=== PATIENT | female | born 1960 | race Caucasian/White ===

== ENCOUNTER 2020-02-24 09:00 | Day surgery (SDC) | payer BC ==
[2020-02-18 12:45] VITALS: BMI 22.8
--- OUTSIDE RECORDS SUMMARY | 2020-02-24 09:04 | XMS ---
:1960 [facility] Care Team Providers Name Role Phone AMY HENRRY Lenny Unavailable Unavailable Greenhut, H DO Unavailable Greenhut, H DO Unavailable Greenhut, H DO Unavailable Greenhut, H DO Unavailable Greenhut, H DO Unavailable Greenhut, H DO Unavailable Greenhut, H DO Unavailable NURSE Unavailable Unavailable KAUS Unavailable Unavailable Gilhooly, INFORMATION SYSTEMS OPERATOR Unavailable Unavailable Gilhooly, INFORMATION SYSTEMS OPERATOR Unavailable Unavailable Gilhooly, INFORMATION SYSTEMS OPERATOR Unavailable Unavailable Gilhooly, INFORMATION SYSTEMS OPERATOR Unavailable Unavailable Gilhooly, INFORMATION SYSTEMS OPERATOR Unavailable Unavailable Gilhooly, INFORMATION SYSTEMS OPERATOR Unavailable Unavailable Gilhooly, INFORMATION SYSTEMS OPERATOR Unavailable Unavailable Gilhooly, INFORMATION SYSTEMS OPERATOR Unavailable Unavailable Gilhooly, INFORMATION SYSTEMS OPERATOR Unavailable Unavailable Gilhooly, INFORMATION SYSTEMS OPERATOR Unavailable Unavailable Gilhooly, INFORMATION SYSTEMS OPERATOR Unavailable Unavailable Gilhooly, INFORMATION SYSTEMS OPERATOR Unavailable Unavailable CALL, MURALI Unavailable Unavailable CALL, MURALI Unavailable Unavailable CALL, MURALI Unavailable Unavailable CALL, MURALI Unavailable Unavailable CALL, MURALI Unavailable Unavailable MEDINA-LALIT, PA Unavailable Unavailable MEDINA-LALIT, PA Unavailable Unavailable MEDINA-LALIT, PA Unavailable Unavailable Jayshree BALDWIN, S Unavailable Unavailable Jayshree BALDWIN, S Unavailable Unavailable Jayshree BALDWIN, S Unavailable Unavailable Jayshree BALDWIN, S Unavailable Unavailable Jayshree BALDWIN, S Unavailable Unavailable Jayshree BALDWIN, S Unavailable Unavailable Jayshree BALDWIN, S Unavailable Unavailable Jayshree BALDWIN, S Unavailable Unavailable MD GABRIELA Unavailable Unavailable MARY MOODY MD Unavailable Unavailable Re-disclosure Warning The records that you are about to access may contain information from federally- assisted alcohol or drug abuse programs. If such information is present, then the following federally mandated warning applies: This information has been disclosed to you from records protected by federal confidentiality rules (42 CFR part 2). The federal rules prohibit you from making any further disclosure of this information unless further disclosure is expressly permitted by the written consent of the person to whom it pertains or as otherwise permitted by 42 CFR part 2. A general authorization for the release of medical or other information is NOT sufficient for this purpose. The Federal rules restrict any use of the information to criminally investigate or prosecute any alcohol or drug abuse patient.The records that you are about to access may contain highly sensitive health information, the redisclosure of which is protected by Article 27-F of the [facility] Public Health law. If you continue you may haveaccess to information: Regarding HIV / AIDS; Provided by facilities licensed or operated by the [facility] Office of Mental Health; or Provided by the [facility] Office for People With Developmental Disabilities. If such information is present, then the following [facility] mandated warning applies: This information has been disclosed to you from confidential records which are protected by state law. State law prohibits you from making any further disclosure of this information without the specific written consent of the person to whom it pertains, or as otherwise permitted by law. Any unauthorized further disclosure in violation of state law may result in a fine or senior living sentence or both. A general authorization for the release of medical or other information is NOT sufficient authorization for further disclosure. Allergies and Adverse Reactions Type Description Substance Reaction Status Data Source(s ) Drug allergy No Known Allergies No Known Allergies [facility] Family History Family Member Family Member Family Member Date of Description Data Source(s) Name Gender Status Status Unknown Female Diagnosis 12/30/2019 NEXTGEN 12:00:00 AM ([facility]) Unknown Female Diagnosis 03/04/2018 NEXTGEN 12:00:00 AM ([facility]) Encounters Encounter Providers Location Date Indications Data Source(s ) Outpatient Attender: Shruti 12/30/2019 KARUNA Adam INFORMATION SYSTEMS OPERATOR 11:30:00 AM ([facility]) Outpatient Attender: Puma 04/28/2019 NEXTGEN Martell MDAttender: 12:00:00 AM ([facility] EST [facility]) NPReferrer: Puma Martell MD Outpatient Attender: RACHEL MDHEM-4D 03/13/2019 ABDOMINAL PAIN, [facility] REYNOLDSAttender: 08:31:00 PM DILATED COMMON BI LE David Kamila EST - DUCT HYPERTENSION DOAdmitter: RACHEL 03/14/2019 REYNOLDSConsultant: 06:39:00 PM JE OCHOA EST MDConsultant: ZULEMA MOODY MDConsultant: ARIEL LUNAonsultant: CONSULT NURSEConsultant: RACHEL CALLConsultant: HENRRY REYESConsultant: SUSSY WARNER ABDOMINAL PAIN, DILATED COMMON BILE DUCT HYPERTENSION Patient discharged. Insurance Providers Payer name Policy type Policy ID Covered Covered libertarian's Policy P laura / Coverage libertarian ID relationship to [employer] Inf ormation type maldonado BC PPO [id number] SP [id number] EMPIRE BLUE [id number] Patient is [id number] CROSS - PPO 48 Insured EMPIRE BLUE [id number] Patient is [id number] CROSS-OTHER [id number] Insured Problems, Conditions, and Diagnoses Code Display Name Description Problem Type Effective Data Dates Source(s) Z13.31 Encounter for Encounter for Diagnosis 12/30/2019 [facility] screening for screening for interpretation 12:00:00 AM ([facility] depression depression (observable EDT Medical) entity) Z83.3 Family history of FAMILY HISTORY OF Diagnosis 03/16/2019 [facility] diabetes mellitus DIABETES MELLITUS 03:03:00 PM Hospital EST F32.9 Major depressive MAJOR DEPRESSIVE Diagnosis 03/16/2019 [facility] ack disorder, single DISORDER, SINGLE 03:03:00 PM H ospital episode, EPISODE, EST unspecified UNSPECIFIED E78.5 Hyperlipidemia, HYPERLIPIDEMIA, Diagnosis 03/16/2019 [facility] unspecified UNSPECIFIED 03:03:00 PM Hospital EST I10 Essential ESSENTIAL Diagnosis 03/16/2019 [facility] (primary) (PRIMARY) 03:03:00 PM Hospital hypertension HYPERTENSION EST K58.9 Irritable bowel IRRITABLE BOWEL Diagnosis 03/16/2019 [facility] syndrome without SYNDROME WITHOUT 03:03:00 PM H ospital diarrhea DIARRHEA EST K21.9 Gastro-esophageal GASTRO-ESOPHAGEAL Diagnosis 03/16/2019 [facility] reflux disease REFLUX DISEASE 03:03:00 PM Hospi garret without WITHOUT EST esophagitis ESOPHAGITIS K83.8 Other specified OTHER SPECIFIED Diagnosis 03/16/2019 [facility] k diseases of DISEASES OF 03:03:00 PM Hospital biliary tract BILIARY TRACT EST R10.13 Epigastric pain EPIGASTRIC PAIN Diagnosis 03/16/2019 [facility] k 03:03:00 PM Hospital EST Surgeries/Procedures Procedure Description Date Indications Data Source(s) PREV VISIT, EST, AGE 40-64 12/30/2019 N EXTGEN ([facility] 12:00:00 AM Medical) EDT - 12/30/2019 12:00:00 AM EDT BRIEF EMOTIONAL/BEHAV ASSMT 12/30/2019 NEXTGEN ([facility] 12:00:00 AM Medical) EDT - 12/30/2019 12:00:00 AM EDT ELECTROCARDIOGRAM REPORT 03/13/2019 NEX TGEN ([facility] 12:00:00 AM Medical) EST - 03/13/2019 12:00:00 AM EST Results ID Date Data Source [id number] 01/15/2020 08:30:00 AM EDT [facility] Name Value Range Interpretation Description Data Sup porting Code Source(s) Document(s ) SARS [facility] coronavirus 2 RNA This lab was ordered by [facility] and r eported by [employer]. ID Date Data Source [id number] 10/01/2019 12:00:00 AM EDT [facility] Name Value Range Interpretation Code Description Data Batool rce(s) Supporting Document(s ) SARS-CoV-2 [facility] This lab was ordered by [facility] and reported by [employer]. ID Date Data Source [id number] 09/29/2019 09:12:00 AM EDT [facility] Name Value Range Interpretation Description Data Sup porting Code Source(s) Document(s ) SARS [facility] CORONAVIRUS 2 RNA This lab was ordered by [facility] and r eported by [employer]. ID Date Data Source [id number] 07/27/2019 12:00:00 AM EDT [facility] Name Value Range Interpretation Code Description Data Batool rce(s) Supporting Document(s ) 2019-nCoV [facility] RNA XXX CABRERA+probe- Imp This lab was ordered by [facility] a nd reported by [employer]. ID Date Data Source [id number] 03/14/2019 08:47:43 AM EST [facility] Exam: Limited Abdominal Ultrasound Hist ory: Epigastric painFindings: Evaluation was performed in the gallbladder region. No gallstones are identified. There is no gallbladder wall thickening. The common bile duct is dilated measuring 9 mm in diameter. There is diffuse increased hep atic echogenicity, compromising assessment for focal abnormalities. No right hydron ephrosis.Impression: 1. Dilated common bile duct. No gallstones visualized.2. Nonspe cific diffuse increased hepatic echogenicity. This is most commonly due to diffuse fat ty infiltration but can be the result of other diffuse hepatic parenchymal proces ses or an artifact of patient body habitus. Name Value Range Interpretation Code Description Data Batool rce(s) Supporting Document(s ) ID Date Data Source [id number] 03/14/2019 02:10:12 AM EST [facility] EX[facility]: CT ABDPEL IV CONTRAST ONLYCLINICAL HISTORY: Epigastric pain.COMPARISON: Abdominal ultrasound 03/13/2019.TECHNIQUE : CT images of the abdomen and pelvis were acquired following the administration of intravenous of contrast. Images were reformatted in coronal plane.Dose Reduct ion: One or more of the following dose reduction techniques were used: automate d exposure control, adjustment of the mA and/or kV according to patient size, use of iterative reconstruction technique.FINDINGS: Generalized decrease d hepatic attenuation with areas of fatty sparing along the gallbladder fossa, sug gestive for hepatic steatosis. A few subcentimeter hepatic hypodensities are too small to characterize. Unremarkable appearance of the spleen, pancreas, and adrenal glands.Symmetric enhancement of the kidneys without hydronephrosis. Small le ft renal cyst. No evidence for obstructing calculus.Limited evaluation of the gastr ointestinal tract without oral contrast. However, no evidence for bowel obstructi on or abnormal dilated loops of small bowel. Small hiatal hernia. No CT evidence for acute appendicitis.Uterus is mildly enlarged.No suspicious abdominopelvic ly mphadenopathy identified.No abdominopelvic fluid collection.Mild to moderate vascul ar calcifications.Punctate right intraperitoneal calcification could repr esent a small calcified lymph node or area of old fat necrosis.Degenerative changes of the spine.IMPRESSION: No definite imaging correlate for symptomatology. Clinical c orrelation and follow-up recommended.Hepatic steatosis. Name Value Range Interpretation Code Description Data Batool rce(s) Supporting Document(s ) ID Date Data Source [id number] 03/13/2019 11:22:00 PM EST [facility] Name Value Range Interpretation Description Data Sup porting Code Source(s) Document(s ) U COLOR Yellow [facility] U APPEAR Clear [facility] U GLUC Negative NEG [facility] MG/DL Hospital U BILI Negative [facility] U KETONE 15 MG/DL NEG * [facility] U SG 1.010 1.003-1. [facility] 030 [facility] U BLOOD Negative NEG [facility] U PH 7.0 5.0-7.5 [facility] U PROTEIN Negative [facility] MG/DL [facility] U UROBILI 0.2 EU/DL 0.2-1.0 [facility] U NITRITE Negative [facility] U LEUK EST Negative [facility] ID Date Data Source [id number] 03/13/2019 10:06:00 PM EST [facility] Name Value Range Interpretation Description Data Sup porting Code Source(s) Document(s ) TROPONIN I <0.3 "<0.3" [facility] ng/ml Hospital ID Date Data Source [id number] 03/13/2019 10:06:00 PM EST [facility] Name Value Range Interpretation Code Description Data Batool rce(s) Supporting Document(s ) LIPASE 20 U/L 13-60 [facility] ID Date Data Source [id number] 03/13/2019 10:06:00 PM EST [facility] Name Value Range Interpretation Description Data Sup porting Code Source(s) Document(s ) GLUCOSE 143 70-110 Above high normal [facility] MG/DL [facility] BUN 18 MG/DL 6-22 [facility] CREATININE 0.65 0.50-1.2 [facility] MG/DL 0 [facility] SODIUM 140 135-145 [facility] MMOL/L [facility] POTASSIUM 3.5 3.5-5.1 [facility] mmol/L [facility] CHLORIDE 96 98-106 Below low normal [facility] MMOL/L [facility] CO2 23 20-29 [facility] MMOL/L [facility] ANION GAP 21 7-16 Above high normal [facility] MMOL/L [facility] CALCIUM 10.3 8.7-10.7 [facility] mg/dL [facility] TOT PROT 7.7 G/DL 6.1-8.0 [facility] ALBUMIN 4.8 G/DL 3.3-5.0 [facility] GLOBULIN 2.9 G/DL 1.3-4.5 [facility] BILIRUBIN,TOTA 0.9 0.3-1.2 [facility] L mg/dL Hospital ALK PHOS 99 U/L 50-136 [facility] SGOT (AST) 34 U/L 8-42 [facility] SGPT (ALT) 54 U/L 30-65 [facility] eGFR >60 ">60.0" [facility] mL/min./1.73 square meter eGFR IF >60 ">60.0" [facility] mL/min./1.73 square meter BILIRUBIN,DIRECT 0.2 MG/DL 0.0-0.[address] [facility] l ID Date Data Source [id number] 03/13/2019 09:58:00 PM EST [facility] l Name Value Range Interpretation Description Data Sup porting Code Source(s) Document(s ) WHITE BLOOD 6.4 4.0-11.5 [facility] CELL COUNT K/[facility] RBC 4.65 4.20-5.4 [facility]/[address] HEMOGLOBIN 13.8 12.0-16. [facility] g/dL [address] [place] [address] HEMATOCRIT 39.8 % 37.0-47. [address] MCV 85.6 FL 81.0-99. [address] MCH 29.7 PG 27.0-31. [address] MCHC 34.7 33.0-37. [facility] G/DL [address] [place] [address] RDW 12.6 % 11.5-14. [address] PLT 279 140-440 [facility] K/[facility] MPV 10.0 FL 7.4-10.4 [facility] NEUT% 73 % [facility] IMM GRAN% 0 % [facility] LYMPH% 18 % [facility] MONO% 8 % [facility] EOS% 1 % [facility] BASO% 0 % [facility] NEUT ABS 4.6 1.7-8.6 [facility] X10E3/uL [facility] IMM GRAN ABS 0.0 0.0-0.1 [facility] x10E3/[facility] LYMPH ABS 1.1 0.8-5.9 [facility] X10E3/[facility] MONO ABS 0.5 0.0-1.0 [facility] X10E3/ Hospital EOS ABS 0.1 0.0-0.7 [facility] X10E3/uL Hospital BASO ABS 0.0 0.0-0.2 [facility] X10E3/uL Hospital Procedure Social History Code Duration Value Status Description Data Source(s ) ASSERTION 12/30/2019 coffee completed coffee NEXTGEN 12:00:00 AM EDT ([facility]) 12/30/2019 Current completed Current non-smoker NEXTGE N 12:00:00 AM EDT non-smoker ([facility]) Vital Signs ID Date Data Source UNK Name Value Range Interpretation Code Description Data Source(s) Body mass index 22.90 22.90 kg/meter(2) NE XTGEN (BMI) [Ratio] kg/meter(2) ([facility]) Diastolic blood 68 mm[Hg] 68 mm[Hg] NEXTGEN pressure ([facility]) Systolic blood 114 mm[Hg] 114 mm[Hg] NEXTGEN pressure ([facility]) Body weight 133.40 133.40 [lb_av] NEXTGEN Measured [lb_av] ([facility]) Body height 64.00 64.00 [in_us] NEXTGEN [in_us] ([facility]) ID Date Data Source [id number] 03/16/2019 03:03:55 PM EST [facility] Name Value Range Interpretation Code Description Data Source(s) Weight 68.9 KG 68.9 KG [facility] Height 162.56 CM 162.56 CM [facility] status N N [facility] [Interpretation] - Reported
[2020-02-24 09:17] VITALS: PULSE 65
[2020-02-24] MEDS ORDERED: MIDAZOLAM HCL 2 MG/2 ML SINGLE DOSE VIAL ONE ×2 (10:12→11:04)
[2020-02-24] MEDS ORDERED: ROPIVACAINE HCL 0.5% 30ML VIAL ONE (10:12)
[2020-02-24] MEDS ORDERED: ONDANSETRON 4 MG/2 ML VIAL ONE (11:04)
[2020-02-24] MEDS ORDERED: DEXAMETHASONE SOD PHOSPHATE 4 MG/1 ML VIAL ONE (11:04)
[2020-02-24] MEDS ORDERED: ceFAZolin SODIUM 1 GM VIAL ONE (11:06)
[2020-02-24] MEDS ORDERED: KETOROLAC TROMETHAMINE 30 MG/1 ML VIAL ONE (11:45)
--- NOTE | 2020-02-24 12:32 | OP ---
DATE OF OPERATION: 02/24/2020 PREOPERATIVE DIAGNOSIS: Right basal joint arthritis. POSTOPERATIVE DIAGNOSIS: Right basal joint arthritis. OPERATIVE PROCEDURE: 1. Right basal joint arthroplasty. 2. Right thumb carpometacarpal tendon transfer. SURGEON: Ector Sheets MD RADIOTELEPHONE TECHNICAL OPERATOR: TIMMY Drake ANESTHESIA: Regional. COMPLICATIONS: None. ESTIMATED BLOOD LOSS: Minimal. INDICATIONS FOR PROCEDURE: The patient is a 59-year-old female with the above finding, indicated for operative treatment. Risks, benefits and alternatives were discussed with her at length and proper informed consent was obtained. PROCEDURE: After proper identification of the patient and correct operative site, patient was brought to the operating room and placed supine on the operating table, prominences well padded. Sedation was given by the anesthesiologist. Regional anesthesia was given by the anesthesiologist. Timeout procedure was performed. Right upper extremity was prepped and draped in usual sterile fashion. Intravenous antibiotics were then given. Esmarch bandage to exsanguinate right upper extremity. Tourniquet was inflated to 250 mmHg. Curvilinear incision made over the base of the thumb at the thenar eminence in line with Leigh approach. Incision was taken sharply through the skin with blunt dissection through the subcutaneous tissues, carefully protecting the sensory nerves. Thenar eminence was elevated off the carpometacarpal joint. A large cyst was found at the CMC joint and was excised. A longitudinal capsulotomy was performed at the carpometacarpal joint and the joint was found to be severely arthritic. Subperiosteal elevation off the trapezium was performed and the trapezium was excised in whole. Suspension plasty was performed using an Arthrex internal brace device. A SwiveLock anchor was placed in the base of the thumb metacarpal and the base of the next metacarpal with a FiberTape suture interpositioned between the two, holding the thumb in the suspended position with appropriate tensioning performed. Once this was secured, excellent motion of the thumb was achieved and there was no impingement and there was good arthroplasty space maintained. Area was irrigated and then the capsule was repaired [id number]. Tendon transfer augmentation of the capsule was performed using the abductor pollicis longus tendon. This provided secure repair of the joint capsule and arthroplasty. The thumb was then taken through range of motion and found to be in excellent position with full range of motion achievable without any tensin. Wound was then repaired in layers using 4-0 Vicryl and 4-0 Monocryl suture. Steri-Strips and sterile dressings were applied. Splint was placed. Patient was reversed from anesthesia and brought to recovery room in stable condition. She tolerated procedure well. Ousmane Smith, the bilingual sales assistant, was integral throughout the procedure. The procedure could not have been performed without a skilled operative bilingual sales assistant. He was especially necessary during the portion of tensioning suspension plasty and this could not have been performed without a skilled operative bilingual sales assistant. ECTOR SHEETS M.D. [id number]
[2020-02-24] MEDS ORDERED: ONDANSETRON 4 MG/2 ML VIAL IVPUSH PRN (13:29)
[2020-02-24] MEDS ORDERED: oxyCODONE HCL 5 MG TABLET PO PRN (13:29)
[2020-02-24] MEDS ORDERED: ACETAMINOPHEN 325 MG TABLET (FP) PO PRN (13:29)
[2020-02-24 13:30] VITALS: BP 106/68; TEMP 97.7
[2020-02-24] MEDS ORDERED: LACTATED RINGERS SOLUTION 1,000 ML IV SCH (13:30)
== END 2020-02-24 13:00 | disposition home or self-care (01) ==
LOC: FASU 09:00
PROVIDERS: ATTEND Orthopaedic Surgery Hand Surgery
PROC: 0RQS0ZZ Repair Right Carpometacarpal Joint, Open Approach (ICD-10-PCS; 2020-02-24)
PROC: 0LX70ZZ Transfer Right Hand Tendon, Open Approach (ICD-10-PCS; principal; 2020-02-24 11:11)
DX: M18.11 Unilateral primary osteoarthritis of first carpometacarpal joint, right hand (principal)